=== PATIENT | female | born 1935 | race Caucasian/White ===

== ENCOUNTER 2016-11-19 16:37 | Inpatient (IN) | payer MEDICARE, OTHER ==
--- NOTE | ~2016-11-19 | HP ---
History And Physical [place] [id number] [facility] [place]. [address] NAME: DONG PEDROZA : 31 STATUS : ADM Santy PAT#: [id number] AGE: 81 ADM/REG DATE : 11/19/16 MR#: [id number] REPORT SERV DATE: 11/19/16 DICTATED BY: ANGELY SOMERS DATE: 11/19/16 REPORT STATUS : Draft TRANSCRIBED BY: MODL DATE: 11/19/16 DATE OF ADMISSION: 11/19/2016 CHIEF COMPLAINT: Possible aspiration. HISTORY OF PRESENT ILLNESS: The patient is an 81-year-old female with past medical history of dementia; dysphagia secondary to esophageal stricture with multiple dilatations, seen by Dr. Smalls; has had prior evaluation for possible PEG. However, this does not appear consistent with the patient's recent quality of life as reported by family. [facility] that occurred today. Has had intermittent and more recurrent aspirations since last dilatation in October, but the patient has had a hard time with esophagus, as becoming more advanced pathology. Severity has been mild, but does have right lower component on imaging. Has been febrile, flushed, and tachypneic at times with tachycardia. No radiating symptoms. Does have generalized weakness with occasional cough, but this has also started to improve. No pain. There are no worsening or relieving symptoms per patient. The patient does not feel like she has any discomfort or feels like she has any soreness at this time, but is forgetful that event even occurred. REVIEW OF SYSTEMS: GENERAL: Positive for weakness and fevers. EYES: No eye pain or visual changes. ENT: Did have initially sore throat, but no congestion. NEUROLOGIC: No headache. At baseline dementia. No additional confusion. SKIN: Does have flushing of face, but no rashes. RESPIRATORY: Does have cough. Shortness of breath has improved. CARDIOVASCULAR: No chest pain or palpitations reported. GASTROINTESTINAL: No nausea, vomiting, but does have esophageal difficulties with stricture history. GENITOURINARY: Does have increased urgency, but no frequency. MUSCULOSKELETAL: Does have chronic arthralgias, myalgias. ENDOCRINE: Mild fatigue. No polydipsia. HEMATOLOGIC: No bleeding or bruising. IMMUNOLOGIC: No rhinorrhea. PSYCHIATRIC: No anxiety. Does have baseline dementia, but no increased confusion. PAST MEDICAL HISTORY: Dementia; reflux with hiatal hernia; dysphagia with esophageal stricture and frequent dilatations, seen by Dr. Smalls; depression; anxiety; hypertension; hyperlipidemia; hypothyroidism; asthma. SURGICAL HISTORY: Cholecystectomy, hysterectomy, abdominal surgeries, and multiple stricture dilatations. ALLERGIES: NO KNOWN DRUG ALLERGIES. SOCIAL HISTORY: No smoking, alcohol, or illicits. Lives at [facility] History And Physical [address] [address] NAME: DONG PEDROZA : 33 STATUS : ADM Santy PAT#: [id number] AGE: 81 ADM/REG DATE : 11/19/16 MR#: [id number] REPORT SERV DATE: 11/19/16 DICTATED BY: ANGELY SOMERS DATE: 11/19/16 REPORT STATUS : Draft TRANSCRIBED BY: SHANE DATE: 11/19/16 , has 4 children. 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 FAMILY HISTORY: Cirrhosis in mother. Prostate cancer in father. PHYSICAL EXAMINATION: VITAL SIGNS: The patient's blood pressure 179/85, temperature 98.6, pulse 111, respirations 22, temperature 101.4. GENERAL: Elderly, frail, but no acute distress currently. EYES: No scleral icterus. EOMI. ENT: Nares patent. No thrush. Dry mucous membranes. Does have facial swelling in almost butterfly-type rash, with redness, with fever. CARDIOVASCULAR: Tachycardic, but no rubs or gallops. GASTROINTESTINAL: Soft, nontender, and nondistended. Bowel sounds positive. RESPIRATORY: Mildly decreased basilar sounds, but no wheezing. GENITOURINARY: Deferred. Does have diaper. MUSCULOSKELETAL: Does move extremities, but weak with atrophied muscle groups. SKIN: Facial flushing, but no rashes or bruising. HEMATOLOGIC: No bleeding or bruising. LYMPHATIC: No cervical lymphadenopathy. NEUROLOGIC: Alert to person and family member at bedside, but not situation. PSYCHIATRIC: Calm, pleasant, redirectable. LABORATORY DATA: BNP 91.8. BMP grossly within normal limits with mildly elevated glucose of 148. Troponin negative. Heme profile WBC 6.7, H and H 12.4 and 37.3, platelets 267. INR 1.1. Portable chest, right basilar infiltrate. HOME MEDICATIONS: Amlodipine, famotidine, Synthroid, Singulair, multivitamin, Zantac, Exelon, Zocor, trazodone, and Diovan. ASSESSMENT AND PLAN: 1. Right lobe aspiration pneumonia. 2. Dysphagia with esophageal stricture. 3. Hypertension. 4. Dementia. 5. Anxiety, depression history. 6. Hypothyroidism. 7. Protein-calorie malnutrition. 8. Systemic inflammatory response syndrome. 9. Comfort care, do not resuscitate. PLAN: 1. For right aspiration pneumonia, IV antibiotics. Repeat ST evaluation. Likely secondary to stricture as the patient has had recurrent episodes. Per review of prior records, PEG tube appears to be not consistent with patient's prior request, and we will continue supportive treatment as an aspiration precautions. 2. Dysphagia with esophageal stricture, followed by Dr. Smalls. Recent dilatation in History And Physical [address] [address] NAME: DONG PEDROZA : 31 STATUS : ADM Santy PAT#: [id number] AGE: 81 ADM/REG DATE : 11/19/16 MR#: [id number] REPORT SERV DATE: 11/19/16 DICTATED BY: ANGELY SOMERS DATE: 11/19/16 REPORT STATUS : Draft TRANSCRIBED BY: MODLeslie DATE: 11/19/16October. 3. Hypertension. Diovan, Norvasc. 4. Dementia, at baseline. 5. Anxiety, depression; stable. Pleasant. 6. Hypothyroidism, on replacement. 7. Protein-calorie malnutrition. Will need ST evaluation for progressive decline with mechanical difficulties. Has been offered PEG tube, family declined. Appears not to be consistent with the patient's recent quality of life. 8. SIRS, secondary to aspiration. Continue to monitor. IV antibiotics. Supportive treatment. 9. Comfort care, DNR. POLST form on chart. All questions answered of the patient and family at bedside. DDN/MODL Angely Somers MD / [id number] CC: MD Christiano Hutchinson D.O.
--- NOTE | ~2016-11-19 | DS ---
Discharge Summary [facility] [address] [facility] [place]. [address] NAME: DONG PEDROZA : 31 STATUS : DIS IN PAT#: [id number] AGE: 81 ADM/REG DATE : 11/20/16 MR#: [id number] REPORT SERV DATE: 11/24/16 DICTATED BY: ARABELLA SMALLS DATE: 11/23/16 REPORT STATUS : Draft TRANSCRIBED BY: MODL DATE: 11/23/16 ADMISSION DATE: 11/20/2016 DISCHARGE DATE: 11/23/2016 DISCHARGE DIAGNOSES: 1. Right aspiration pneumonia. 2. Dysphagia with esophageal stricture, last dilated on 10/25/2016, with Dr. Larson. Bedside swallow study completed, 11/20/2016. 3. Protein-calorie malnutrition. 4. Dementia at baseline. 5. Anxiety and depression, stable. 6. Hypertension, stable. PROCEDURES AND IMAGIN. Chest x-ray, 11/19/2016. Impression: Right basilar infiltrate. 2. Chest x-ray, 11/21/2016, increased vascular congestion and developing bilateral asymmetric infiltrates. 3. Bedside swallow, 11/20/2016. Impression: No treatment recommended. Meds with crushed or whole in puree diet. Diet recommendations: Pureed diet. Aspiration precautions and oral care. HOSPITAL STAY: Please refer to history and physical dictated by Dr. Andre Montano on 11/20/2016, for complete admission details. This patient is an 81-year-old female with a past history of dementia, dysphagia secondary to esophageal stricture with multiple dilations under the care of Dr. Larson, has had a prior evaluation for possible PEG tube; however, the patient and family have declined due to quality of life. The patient is a resident at [facility]. The patient became afebrile/tachypneic. Family wanted the patient to be re-evaluated. The patient has had generalized weakness and occasional cough. 1. Right lower lobe aspiration pneumonia. The patient was admitted to the hospital. IV antibiotics were initiated. The patient was followed. She did complete five days of antibiotic. At this time, the patient is afebrile. WBC count is 6.0. The patient is no longer tachycardic. She is on room air. Denies cough at this time. 2. Dysphasic with esophageal structure, last dilated 10/25/2016, by Dr. Larson. Bedside swallow was obtained on 11/20/2016. No treatment was recommended for the patient at that time. Pureed diet was recommended as well as aspiration precautions and oral care. 3. Protein-calorie malnutrition. The patient has been placed on a pureed diet. She has been tolerating. Meds may be crushed or whole in pureed food. 4. Dementia. The patient is at baseline. 5. Anxiety and depression. The patient is stable at this time. 6. Hypertension. The patient's blood pressure has remained stable during her hospital stay. 7. Discharge planning: The patient will return to [facility] with Home Health and PT. The patient will be followed by her primary care. Discharge Summary [address] [address] NAME: DONG PEDROZA : 31 STATUS : DIS IN PAT#: [id number] AGE: 81 ADM/REG DATE : 11/20/16 MR#: [id number] REPORT SERV DATE: 11/24/16 DICTATED BY: ARABELLA SMALLS DATE: 11/23/16 REPORT STATUS : Draft TRANSCRIBED BY: SHANE DATE: 11/23/16 DISCHARGE MEDICATIONS: 1. Norvasc 2.5 mg one p.o. every morning. 2. Pepcid 20 mg one p.o. twice daily. 3. Synthroid 175 mcg p.o. every morning. 4. Singulair 5 mg one p.o. every morning. 5. Multivitamin one tablet every morning. 6. Zantac 150 mg one p.o. at bedtime. 7. Exelon 2.5 mg patch topical every morning. 8. Zocor 40 mg one p.o. at bedtime. 9. Trazodone 50 mg one p.o. at bedtime. 10.Diovan HCT 160/12.5 one p.o. every morning. This discharge took greater than 45 minutes due to working with the patient's family at [facility] and special education case manager. /SHANE Arabella Smalls NP / [id number] CC: MD Christiano Hutchinson D.O.
[~2016-11-19 16:37] MED LIST: ADVIL PO; AZASITE OPH; BION TEARS OPH; CALTRA600D PO; CENTRUM PO; CITRUCEL500 MG PO; DIOVAN HC1 PO; EXELON9.5T TOP; LEVAQUIN750 MG PO; LEVOTHYROXIN125 MCG PO; LIPITOR40 PO; MULTIVITAMI1 PO; NORV25 PO; NORV5 PO; PAX20 PO; PEP20 PO; PROAIR HFA INH; SIMETHICONE PO; SINGULAIR1 PO; SINGULAIR5 PO; SYN125 PO; SYNTHROID175 MCG PO; TRAZ50 PO; TUMS E-X750 M2 PO; ZANTAC 150 PO; ZOCOR40 PO; [UNRECOGNIZED DRUG - SUPPLY] OPH
[2016-11-19 17:05] LABS: BASOPHILS 0.1 %; BASOPHILS ABSOLUTE 0.01 10/3/uL (0.0-0.16); EOSINOPHILS 0 %; ER CBC TAT 0 Hrs 05 Mins; HEMATOCRIT 37.3 % (36.0-48.0); HEMOGLOBIN 12.4 g/dL (12.0-16.0); IMMATURE GRANULOCYTES 0.1 %; IMMATURE GRANULOCYTES ABSOLUTE 0.01 10/3/uL (0.0-0.11); LYMPHOCYTES 6.9 %; LYMPHOCYTES ABSOLUTE 0.46 10/3/uL (0.67-4.30); MEAN CORPUS HGB CONC 33.2 g/dL (32.0-36.0); MEAN CORPUSCULAR HEMOGLOB 32.2 pg (26.0-34.0); MEAN CORPUSCULAR VOLUME 96.9 fL (80-100); MEAN PLATELET VOLUME 8.9 fL (9.2-13.0); MONOCYTES 1.9 %; MONOCYTES ABSOLUTE 0.13 10/3/uL (0.21-1.20); NEUTROPHILS ABSOLUTE 6.09 10/3/uL (2.02-8.40); PLATELET COUNT 267 10/3/uL (150-400); RED CELL COUNT 3.85 10/6/uL (4.0-5.6); WHITE BLOOD CELLS 6.7 10/3/uL (4.5-10.5)
[2016-11-19 17:06] LABS: MANUAL DIFF NO %
[2016-11-19 17:15] LABS: INTERNATIONAL NORMAL RATI 1.1 UNITS (-); PARTIAL THROMBO TIME 25.9 SEC (22.5-37.2)
[2016-11-19 17:18] LABS: PROTIME (NOT ORD) 13.8 SEC (12.0-14.5)
[2016-11-19 17:24] LABS: BUN (BLOOD UREA NITROGEN) 16 MG/DL (6-23); CHEST PAIN PROFILE TAT 0 Hrs 24 Mins; CHLORIDE, SERUM 97 MMOL/L (96-112); CO2 (CARBON DIOXIDE) 29 MMOL/L (24-34); CREATININE 0.62 MG/DL (0.55-1.02); GFR AFRICAN AMERICAN 97 ML/MIN (>=60); GFR NON AFRICAN AMERICAN 83 ML/MIN (>=60); GLUCOSE, SERUM 148 MG/DL (60-99); POTASSIUM, SERUM 3.9 MMOL/L (3.5-5.3); SODIUM, SERUM 136 MMOL/L (135-148); TROPONIN I <0.02 NG/ML (<0.05)
[2016-11-19] MEDS ORDERED: EXELON9.5T TOP (17:36)
[2016-11-19] MEDS ORDERED: DIOVAN HC1 PO (17:36)
[2016-11-19] MEDS ORDERED: SYNTHROID175 MCG PO (17:37)
[2016-11-19] MEDS ORDERED: MULTIVIT/MIN PO (17:37)
[2016-11-19] MEDS ORDERED: ZOCOR40 PO (17:38)
[2016-11-19] MEDS ORDERED: SINGULAIR5 PO (17:38)
[2016-11-19] MEDS ORDERED: TRAZ50 PO (17:38)
[2016-11-19] MEDS ORDERED: PEP20 PO (17:38)
[2016-11-19] MEDS ORDERED: NORV25 PO (17:39)
[2016-11-19] MEDS ORDERED: ZANTAC 150 PO (17:39)
[2016-11-19 21:32] LABS: SGOT(AST) 28 U/L (5-40); SGPT(ALT) 21 U/L (5-65)
[2016-11-19 21:34] LABS: A/G RATIO 0.7 (0.7-1.9); ALBUMIN 3.3 G/DL (3.5-5.0); ALKALINE PHOSPHATASE 71 U/L (45-117); TOTAL BILIRUBIN 0.3 MG/DL (0-1.2); TOTAL PROTEIN 8.3 G/DL (6.0-8.5)
[2016-11-20 04:47] LABS: HEMOGLOBIN 10.4 g/dL (12.0-16.0); MEAN CORPUS HGB CONC 33.3 g/dL (32.0-36.0); MEAN CORPUSCULAR HEMOGLOB 31.9 pg (26.0-34.0); MEAN CORPUSCULAR VOLUME 95.7 fL (80-100); MEAN PLATELET VOLUME 8.7 fL (9.2-13.0); PLATELET COUNT 227 10/3/uL (150-400); RBC DISTRIBUTION WIDTH 12.9 % (12.0-16.0); RED CELL COUNT 3.26 10/6/uL (4.0-5.6)
[2016-11-20 04:53] LABS: HEMATOCRIT 31.2 % (36.0-48.0); MANUAL DIFF YES %; WHITE BLOOD CELLS 15.8 10/3/uL (4.5-10.5)
[2016-11-20 05:00] LABS: BUN (BLOOD UREA NITROGEN) 13 MG/DL (6-23); CHLORIDE, SERUM 99 MMOL/L (96-112); CO2 (CARBON DIOXIDE) 27 MMOL/L (24-34); CREATININE 0.46 MG/DL (0.55-1.02); GFR AFRICAN AMERICAN 107 ML/MIN (>=60); GFR NON AFRICAN AMERICAN 92 ML/MIN (>=60); POTASSIUM, SERUM 3.8 MMOL/L (3.5-5.3); SODIUM, SERUM 136 MMOL/L (135-148)
[2016-11-20 05:01] LABS: GLUCOSE, SERUM 105 MG/DL (60-99)
[2016-11-20 05:40] LABS: BAND NEUTROPHILS 13 %; LYMPHOCYTES 10 %; LYMPHOCYTES ABSOLUTE (CALC) 1.58 10/3/uL (0.67-4.30); MONOCYTES 4 %; MONOCYTES ABSOLUTE (CALC) 0.63 10/3/uL (0.21-1.20); NEUTROPHILS ABSOLUTE (CALC) 13.59 10/3/uL (2.02-8.40); PLATELET ESTIMATE ADQ (ADEQUATE); RBC MORPHOLOGY NORM (NORMAL); SEGMENTED NEUTROPHIL (0) 73 %; TOTAL NUCLEATED CELLS 100
[2016-11-20 05:46] LABS: PROCALCITONIN 6.66 ng/mL (<0.5)
[2016-11-21 05:11] LABS: CALCIUM, SERUM 7.8 MG/DL (8.5-10.4); CHLORIDE, SERUM 100 MMOL/L (96-112); CO2 (CARBON DIOXIDE) 24 MMOL/L (24-34); CREATININE 0.37 MG/DL (0.55-1.02); GFR AFRICAN AMERICAN 115 ML/MIN (>=60); GFR NON AFRICAN AMERICAN 99 ML/MIN (>=60); GLUCOSE, SERUM 92 MG/DL (60-99); POTASSIUM, SERUM 3.7 MMOL/L (3.5-5.3); SODIUM, SERUM 134 MMOL/L (135-148)
[2016-11-21 05:14] LABS: BASOPHILS 0.1 %; BASOPHILS ABSOLUTE 0.01 10/3/uL (0.0-0.16); EOSINOPHILS 0.5 %; EOSINOPHILS ABSOLUTE 0.06 10/3/uL (0.0-0.53); HEMATOCRIT 31.4 % (36.0-48.0); HEMOGLOBIN 10.6 g/dL (12.0-16.0); IMMATURE GRANULOCYTES 0.2 %; IMMATURE GRANULOCYTES ABSOLUTE 0.03 10/3/uL (0.0-0.11); LYMPHOCYTES 5.7 %; LYMPHOCYTES ABSOLUTE 0.71 10/3/uL (0.67-4.30); MEAN CORPUS HGB CONC 33.8 g/dL (32.0-36.0); MEAN CORPUSCULAR HEMOGLOB 32.5 pg (26.0-34.0); MEAN CORPUSCULAR VOLUME 96.3 fL (80-100); MEAN PLATELET VOLUME 9.3 fL (9.2-13.0); NEUTROPHILS 89.5 %; NEUTROPHILS ABSOLUTE 11.08 10/3/uL (2.02-8.40); PLATELET COUNT 235 10/3/uL (150-400); RBC DISTRIBUTION WIDTH 13.1 % (12.0-16.0); RED CELL COUNT 3.26 10/6/uL (4.0-5.6); WHITE BLOOD CELLS 12.4 10/3/uL (4.5-10.5)
[2016-11-21 05:21] LABS: BUN (BLOOD UREA NITROGEN) 8 MG/DL (6-23)
[2016-11-21 05:29] LABS: MANUAL DIFF NO %
[2016-11-22 07:42] LABS: BUN (BLOOD UREA NITROGEN) 10 MG/DL (6-23); CHLORIDE, SERUM 103 MMOL/L (96-112); CO2 (CARBON DIOXIDE) 25 MMOL/L (24-34); CREATININE 0.32 MG/DL (0.55-1.02); GFR AFRICAN AMERICAN 120 ML/MIN (>=60); GFR NON AFRICAN AMERICAN 104 ML/MIN (>=60); GLUCOSE, SERUM 102 MG/DL (60-99); POTASSIUM, SERUM 3.7 MMOL/L (3.5-5.3); SODIUM, SERUM 136 MMOL/L (135-148)
[2016-11-22 07:44] LABS: BASOPHILS 0.1 %; BASOPHILS ABSOLUTE 0.01 10/3/uL (0.0-0.16); EOSINOPHILS 1.2 %; HEMATOCRIT 29.8 % (36.0-48.0); IMMATURE GRANULOCYTES 0.1 %; IMMATURE GRANULOCYTES ABSOLUTE 0.01 10/3/uL (0.0-0.11); LYMPHOCYTES 8.9 %; LYMPHOCYTES ABSOLUTE 0.75 10/3/uL (0.67-4.30); MEAN CORPUS HGB CONC 33.6 g/dL (32.0-36.0); MEAN CORPUSCULAR HEMOGLOB 32.4 pg (26.0-34.0); MEAN CORPUSCULAR VOLUME 96.4 fL (80-100); MEAN PLATELET VOLUME 8.9 fL (9.2-13.0); MONOCYTES 5.3 %; MONOCYTES ABSOLUTE 0.45 10/3/uL (0.21-1.20); NEUTROPHILS 84.4 %; NEUTROPHILS ABSOLUTE 7.12 10/3/uL (2.02-8.40); PLATELET COUNT 230 10/3/uL (150-400); RBC DISTRIBUTION WIDTH 13.2 % (12.0-16.0); RED CELL COUNT 3.09 10/6/uL (4.0-5.6); WHITE BLOOD CELLS 8.4 10/3/uL (4.5-10.5)
[2016-11-22 07:45] LABS: MANUAL DIFF NO %
[2016-11-23 07:27] LABS: BASOPHILS 0.2 %; BASOPHILS ABSOLUTE 0.01 10/3/uL (0.0-0.16); EOSINOPHILS 1.8 %; EOSINOPHILS ABSOLUTE 0.11 10/3/uL (0.0-0.53); HEMATOCRIT 29.5 % (36.0-48.0); HEMOGLOBIN 10.2 g/dL (12.0-16.0); IMMATURE GRANULOCYTES 0.3 %; IMMATURE GRANULOCYTES ABSOLUTE 0.02 10/3/uL (0.0-0.11); LYMPHOCYTES ABSOLUTE 0.78 10/3/uL (0.67-4.30); MEAN CORPUS HGB CONC 34.6 g/dL (32.0-36.0); MEAN CORPUSCULAR HEMOGLOB 33.1 pg (26.0-34.0); MEAN CORPUSCULAR VOLUME 95.8 fL (80-100); MEAN PLATELET VOLUME 8.8 fL (9.2-13.0); MONOCYTES 6.8 %; MONOCYTES ABSOLUTE 0.41 10/3/uL (0.21-1.20); NEUTROPHILS 77.9 %; NEUTROPHILS ABSOLUTE 4.66 10/3/uL (2.02-8.40); PLATELET COUNT 230 10/3/uL (150-400); RBC DISTRIBUTION WIDTH 13.2 % (12.0-16.0); RED CELL COUNT 3.08 10/6/uL (4.0-5.6)
[2016-11-23 07:28] LABS: MANUAL DIFF NO %
[2016-11-23] MEDS ORDERED: BISR PR (10:43)
[2016-11-23] MEDS ORDERED: T PO (10:44)
[2016-11-23] MEDS ORDERED: LIQUID TEARS OPH (10:51)
[2016-11-23] MEDS ORDERED: DSS PO (10:52)
== END 2016-11-23 12:30 | DRG 178 ==
LOC: ER 16:37 → 4EA 19:21
PROVIDERS: Emergency Medicine; Internal Medicine; Nurse Practitioner Adult Health; Student in an Organized Health Care Education/Training Program
DX: J69.0 Pneumonitis due to inhalation of food and vomit (principal); E44.1 Mild protein-calorie malnutrition; F03.90 Unspecified dementia, unspecified severity, without behavioral disturbance, psychotic disturbance, mood disturbance, and anxiety; Z68.1 Body mass index [BMI] 19.9 or less, adult; K22.2 Esophageal obstruction; I10 Essential (primary) hypertension; F41.9 Anxiety disorder, unspecified; F32.9 Major depressive disorder, single episode, unspecified; E03.9 Hypothyroidism, unspecified; Z51.5 Encounter for palliative care; Z66 Do not resuscitate
CPT/HCPCS: 71010; 80048; 80053; 83735; 83880; 84145; 84484; 85025; 85610; 85730; 87040; 87449; 92610-GN; 94640; 96365; 96366; 97162-GP; 99285; A9270-GY; G8978-CK-GP; G8979-CJ-GP; G8996-CK-GN; G8997-CK-GN; G8998-CK-GN; J1956